=== PATIENT | female | born 1965 | race Caucasian/White ===

== ENCOUNTER → 2020-09-03 09:46 | Outpatient (CLI) | payer OTHER, SELFPAY ==
--- NOTE | ~2020-09-03 | MR_ITS ---
EXAMINATION: MR knee RT wo con DATE: 09/03/2020 10:30 INDICATION: Right knee pain. TECHNIQUE: Magnetic resonance imaging (MRI) of the right knee was performed without intravenous contr ast. Sequences included axial PD-weighted FS FSE, coronal PD-weighted FSE and PD-weighted FS FSE, sag ittal PD-weighted FSE, and sagittal T2-weighted FS FSE. COMPARISON: None. FINDINGS: Medial compartment: Medial meniscus is normal. Medial compartment cartilage is normal. Lateral compartment: Lateral meniscus is normal. Lateral compartment cartilage is normal. Patellofemoral compartment: Patellar cartilage is normal. Trochlear cartilage is normal. Ligaments and tendons: Anterior cruciate ligament demonstrates thickening and increased signal intensity, consistent with pa rtial tear. Posterior cruciate ligament is normal. There is a complete tear of proximal medial collat eral ligament. There are changes of prior sprain of fibular collateral ligament characterized increas ed signal intensity. There is mild patellar tendinopathy. Fluid: There is a large knee joint effusion. Osseous/other: There is bone marrow edema of lateral tibial condyle posteriorly, consistent with contusion. IMPRESSION: 1. Complete tear of medial collateral ligament proximally. 2. Partial tear of anterior cruciate ligament. 3. Large knee joint effusion. Reviewed, dictated and finalized at location A. R D MANAGER
== END ==
PROVIDERS: PCP Family Medicine
DX: M25.461 Effusion, right knee (principal); S83.411A Sprain of medial collateral ligament of right knee, initial encounter; S83.511A Sprain of anterior cruciate ligament of right knee, initial encounter; X58.XXXA Exposure to other specified factors, initial encounter
CPT/HCPCS: 73721

== ENCOUNTER 2025-02-11 14:10 | Outpatient (CLI) | payer OTHER, SELFPAY ==
--- OUTSIDE RECORDS SUMMARY | 2025-02-11 14:16 | XMS_ITS | Encounter Summary ---
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 Historical Provider Final Res ult * SCAN - LABS (05/14/2016 12:00 AM LABORER [employer]) Narrative 05/14/2016 12:00 AM LAB[employer]ER [employer] Ordered by an unspecified provider. Historical Provider MD Final Res ult * SCAN - LABS (05/11/2016 12:00 AM CDT) Narrative 05/11/2016 12:00 AM CDT Ordered by an unspecified provider. us Historical Provider Final Res ult * SCAN - LABS (05/11/2016 12:00 AM CDT) Narrative 05/11/2016 12:00 AM CDT Ordered by an unspecified provider. Historical Provider Final Res ult documented in this encounter Visit Diagnoses Not on filedocumented in this encounter Care Teams Overedge Machine Operator Relationship Specialty Start Date End Date Ricci Christianson DO PCP - General 01/30/19 documented as of this encounter
--- OUTSIDE RECORDS SUMMARY | 2025-02-11 14:16 | XMS_ITS | Encounter Summary ---
Author Organization [facility] TABATHA Capellan [facility] Address [address] [place] [address] Care Team Providers Care Customer Service Representative Teller Name Role Phone Unavailable Primary Care Provider Unavailabl e Reason for Referral * Laboratory Services (Routine) - Open Specialty Diagnoses / Procedures Referred By Contac t Referred To Contact Diagnoses Secondary thrombocytosis Procedures JAK2 MUTATION Joao Case MD [address] [place] [phone] Phone: tel: fax: Referral ID Status Reason Start Date Expiration Date Visits Re quested Visits Authorized [id number] Open 02/11/2025 03/14/2026 1 1 Encounter Details Date Type Department Care Team (Late st Contact Info) Description 02/11/2025 1:30 PM CDT Office Visit [facility] Oncology and Hematology - [place] [address] [place] [address] [facility] [address] [place] [address] Joao Case MD [facility] [address] [place] [phone] Secondary thrombocytosis (Primary Dx); Chronic anemia Social History Tobacco Use Types Packs/Day Years Used Date Smoking Tobacco: Every Day Cigarettes 0.5 20 Started: 02/11/2005 Smokeless Tobacco: Never Tobacco Cessation:Ready to Q uit: Not Asked; Counseling Given: Not Answered Alcohol Use Standard Drinks/Week Comments Never 0 (1 standard drink = 0.6 oz pur e alcohol) Comments Unknown Sex and Gender Information Value Date Recorded Sex Assigned at Not on file Legal Sex Female 10:17 PM CDT Gender Identity Not on file Sexual Orientation Not on file documented as of this encounter Last Filed Vital Signs Vital Sign Reading Time Taken Comments Blood Pressure 122/76 02/11/2025 1:26 PM CDT Pulse 78 02/11/2025 1:26 PM CDT Temperature 37.4 C (99.3 F) 02/11/2025 1:26 PM CDT Respiratory Rate 16 02/11/2025 1:26 PM CDT Oxygen Saturation 97% 02/11/2025 1:26 PM CDT Inhaled Oxygen Concentration - - Weight 65.4 kg (144 lb 3.2 oz) 02/11/2025 1:26 P M CDT Height 160 cm (5' 3) 02/11/2025 1:26 PM CDT Body Mass Index 25.54 02/11/2025 1:26 PM CDT documented in this encounter Plan of Treatment Upcoming Encounters Date Type Department Care Team (Late st Contact Info) Description 02/25/2025 4:30 PM CDT Telephone Check Up [facility] Oncology and Hematology - [place] [address] [facility] [address] [place] [address] Joao Case MD [address] [facility] [address] [place] [address] Scheduled Orders Name Type Priority Associated Diagnoses Orde r Schedule CBC WITH DIFFERENTIAL Lab Stat Secondary thrombocytosis Expected: 02/11/2025, Expires: 02/11/2026 CBC WITHOUT DIFFERENTIAL Lab Stat Secondary thrombocytosis Expected: 02/11/2025, Expires: 02/11/2026 FERRITIN Lab Routine Chronic anemia Expected: 02/11/2025, Expires: 02/11/2026 IRON, TIBC, AND PERCENT SATURATION Lab Routine Chronic anemia Expected: 02/11/2025, Expires: 02/11/2026 C-REACTIVE PROTEIN Lab Routine Secondary thrombocytosis Expected: 02/11/2025, Expires: 02/11/2026 JAK2 MUTATION Lab Routine Secondary thrombocytosis Expected: 02/11/2025, Expires: 02/11/2026 documented as of this encounter Visit Diagnoses Diagnosis Secondary thrombocytosis- Primary Essential thrombocythemia Chronic anemia Anemia, unspecified documented in this encounter
--- OUTSIDE RECORDS SUMMARY | 2025-02-11 14:16 | XMS_ITS | Clinical Summary ---
Author Organization [facility] Sujey gutierres Last Address [address] [place] [address] Care Team Providers Care Long Distance Billing Operator Name Role Phone Unavailable Primary Care Provider Unavailabl e Allergies Active Allergy Reactions Criticality Noted Date Comments Iodinated Contrast Media Unknown 02/11/2025 Medications rosuvastatin (CRESTOR) 10 mg tablet Take 1 Tablet by mouth daily. 12/04/2024 Active aspirin (ECOTRIN EC) 81 mg Tablet, Delayed Release (E.C.) Take 81 mg by mouth daily. Active Active Problems No known active problems Encounters Date Type Department Care Team Description 02/11/2025 1:30 PM CDT Office Visit [facility] Oncology and Hematology - [place] [address] [facility] [address] [place] [address] Joao Case MD Secondary thrombocytosis (Primary Dx); Chronic anemia from Last 3 Months Family History Medical History Relation Name Comments No Known Problems Father Diabetes Mother No Known Problems Sister 1 Diabetes Sister 2 No Known Problems Sister 3 Relation Name Status Comments Child 1 Alive Child 2 Alive Child 3 Alive Father Mother Alive Sister 1 Alive Sister 2 Alive Sister 3 Alive Social History Tobacco Use Types Packs/Day Years [...] on file Sexual Orientation Not on file Last Filed Vital Signs Vital Sign Reading [...] Mass Index 25.54 02/11/2025 1:26 PM CDT Plan of Treatment Upcoming Encounters Date Type Department Care Team (Late st Contact Info) Description 02/25/2025 4:30 PM CDT Telephone Check Up [facility] Oncology and Hematology [facility] [address] [facility] [address] [place] [address] Joao Case MD [address] [facility] [address] [place] [address] Health Maintenance Due Date Last Done Comments DTAP/TDAP/TD VACCINES (1 - Tdap) 1986 HEPATITIS B VACCINES (1 of 3 - 19+ 3-dose series) 12/08 HPV/Cotest (21-29) 01/05/1988 CERVICAL CANCER SCREENING 1997 HPV/Cotest (30-65) 1997 PAP SMEAR 1997 BREAST CANCER SCREENING 2007 COLORECTAL SCREENING 01/05/2012 Colorectal Cancer Screening 01/05/2012 FIT-DNA Q 3 years 01/05/2012 FIT/FOBT Q 1 year 01/05/2012 Flex Sig/CT Colonography Q 5 years 01/05/2012 ZOSTER VACCINE (1 of 2) 2017 Preventative Visit- Commercial 07/08/2024 INFLUENZA VACCINE (#1) 2025 Insurance [employer]ET[employer] CHOICE POS II
--- OUTSIDE RECORDS SUMMARY | 2025-02-11 14:16 | XMS_ITS | Encounter Summary ---
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 Historical Provider [facility] SANDEEP MAJOR Final Result documented in this encounter Visit Diagnoses Not on filedocumented in this encounter Care Teams Mathematician Relationship Specialty Start Date End Date Ricci Christianson DO PCP - General 01/30/19 documented as of this encounter
--- OUTSIDE RECORDS SUMMARY | 2025-02-11 14:16 | XMS_ITS | Clinical Summary ---
Author Organization [facility] Address [address] [place] [address] Care Team Providers Care Distance Learning Coordinator Name Role Phone None, Provider MD Primary Care Provider Unavaila ble Social History Tobacco Use Types Packs/Day Years Used Date Smoking Tobacco: Never Assessed Comments Unknown Sex and Gender Information Value Date Recorded Sex Assigned at Not on file Legal Sex Female 6:21 PM CDT Gender Identity Not on file Sexual Orientation Not on file Plan of Treatment Health Maintenance Due Date Last Done Comments Cervical Cancer Screening Pa p Smear (Age 30 to 64) Every 3 Years 1967 Colorectal Cancer Screening Colonoscopy (10 Years) 1967 Annual Physical 1970 Hepatitis C 1985 DTaP, Tdap and Td Vaccines ( 1 - Tdap) 1986 Hepatitis B Vaccines (1 of 3 - 19+ 3-dose series) 1986 Cervical Cancer Screening Pa p with HPV Testing (Age 30 to 64) Every 5 Years 1997 Cervical Cancer Screening with HPV 1997 Mammogram Screening 2007 Pneumococcal Vaccine: 50+ Ye ars (1 of 1 - PCV) 2017 Zoster Vaccines (1 of 2) 2017 COVID-19 Vaccine (2023-2 5 season) 2024 Meningococcal B Vaccine Aged Out No l onger eligible based on patient's age to complete this topic Meningococcal Vaccine Aged Out No khari candelario eligible based on patient's age to complete this topic RSV Immunizations Under 20 Months Aged Out No longer eligible based on patient's age to complete this topic Insurance [employer]ET[employer] [place] [id number] Care Teams Distance Learning Coordinator Relationship Specialty Start Date End Date None, Provider, MD PCP - General UNKNOWN PHYSICIAN SPECIALTY 03/05/23
--- OUTSIDE RECORDS SUMMARY | 2025-02-11 14:16 | XMS_ITS | Clinical Summary ---
Author Organization [facility] Address [address] [place] [address] Care Team Providers Care Pricer Bagger Name Role Phone HalawaRicci moise Primary Care Provider + Allergies Active Allergy Reactions Criticality Noted Date Comments Iodinated Contrast Media Unknown 01/28/2019 Medications rosuvastatin (CRESTOR) 10 mg tablet Take 1 tablet (10 mg total) by mouth daily 30 tablet 11 02/19/2022 Active Active Problems Problem Noted Date Diagnosed Date Annual physical exam 03/26/2023 Assessment & Plan (03/26/2023 4:38 PM CDT): Cxr Lab Elevated antinuclear antibody (JOHNNY) level 2019 Assessment & Plan (09/29/2019 7:26 AM CDT): See Soap Worker Paresthesias 04/16/2018 Neck pain 10/16/2017 Resolved Problems Problem Noted Date Diagnosed Date Resolved Date Bruising, spontaneous 08/27/20192022 Assessment & Plan (09/29/2019 7:26 AM CDT): Resolved Encounters Date Type Department Care Team Description 11/13/2024 11:13 AM CDT - 11/13/2024 11:59 PM CDT Hospital Encounter [facility] [address] [facility] [address] [place] [address] Encounter for screening mammogram for malignant neoplasm of breast Discharge Disposition: Discharge to home or self care from Last 3 Months Immunizations Immunization Administration Dates Next Due Influenza, Trivalent, IM (MDV) 06/02/2012 Influenza, Trivalent, Preser vative Free, Intramuscular 05/26/2017 Influenza, Unspecified 06/12/2022(Deferr ed: Patient Refused),04/26/2022(Deferred: Patient Refused),04/07/2021(Deferred: Patient Refused),04/07/2021(Deferred: Patient Refused),04/07/2019(Deferred: Patient Refused) Surgical History Surgery Date Site/Laterality Comments HYSTERECTOMY 07/08/2008 - 07/07/2009 SPINE SURGERY 07/08/2009 - 07/07/2010 C5, 6, 7 KNEE LIGAMENT RECONSTRUCTION 07/08/2020 - 07/07/2021 Rig ht AUGMENTATION MAMMAPLASTY 07/08/2005 - 07/07/2006 Bilater al Family History Medical History Relation Name Comments Brain Aneurysm Father No Known Problems Maternal Grandfather No Known Problems Maternal Grandmother No Known Problems Mother No Known Problems Paternal Grandfather No Known Problems Paternal Grandmother No Known Problems Sister 1 No Known Problems Sister 2 No Known Problems Sister 3 Relation Name Status Comments Father Maternal Grandfather Maternal Grandmother Mother Alive Paternal Grandfather Paternal Grandmother Sister 1 Alive Sister 2 Alive Sister 3 Alive Social History Tobacco Use Types Packs/Day Years Used Date Smoking Tobacco: Every Day Cigarettes 0.5 14 Smokeless Tobacco: Never Tobacco Cessation:Ready to Q uit: Not Asked; Counseling Given: Not Answered Alcohol Use Standard Drinks/Week Comments Not Currently 0 (1 standard drink = 0.6 oz pur e alcohol) AUDIT-C Answer Date Recorded Q1: How often do you have a drink containing alc ohol? 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 Gender Identity Not on file Sexual Orientation Not on file Obstetrics History Para Term AB IAB SAB Ectopic Multiple Livin g Live Births 3 3 3 Date Outcome GA Total Labor Labor/2nd/3rd Weight Sex Type Anes PTL Zeenat A1 A5 Name Clin Term Term Term Last Filed Vital Signs Vital Sign Reading Time Taken Comments Blood Pressure 136/84 03/26/2023 4:15 PM CDT Pulse 84 03/26/2023 4:15 PM CDT Temperature 36.2 C (97.2 F) 03/26/2023 4:15 PM CDT Respiratory Rate 16 03/26/2023 4:15 PM CDT Oxygen Saturation 99% 03/26/2023 4:15 PM CDT Inhaled Oxygen Concentration - - Weight 64.4 kg (142 lb) 11/13/2024 11:17 AM CDT Height 160 cm (5' 3) 11/13/2024 11:17 AM CDT Body Mass Index 25.15 11/13/2024 11:17 AM CDT Plan of Treatment Health Maintenance Due Date Last Done Comments Hepatitis C Screening 1967 DTaP/Tdap/Td Vaccine (1 - Tdap) 1978 Hepatitis B Screening 1985 Pneumococcal vaccine <65 (1 of 2 - PCV) 1986 Zoster Vaccine (1 of 2) 2017 Depression Screening 02/15/2023 02/15/2022 Regular Well Visit/Exam 18-64 03/26/2024 03/26/2023, 02/15/2022 Colon Cancer Screening-Colonoscopy 08/30/20242014 Influenza Vaccine (#1) 2025 05/26/2017, 2011 Breast Cancer Screening-Mammogram 11/13/2025 11/13/2024, 05/04/2022, 02/06/2017 Colon Cancer Screening-CT Colonography Discontinued 08/30/2014 Colon Cancer Screening-DNA Stool Discontinued 08/30/19 Colon Cancer Screening-FIT Discontinued 08/30/2014 Colon Cancer Screening-Sigmoidoscopy Discontinued 08/09 Procedures Procedure Name Priority Date/Time Associated Diagnosis Comments SCREENING MAMMOGRAM BILATERAL W SUNG W IMPLANTS Schedule Routine, Read Routine (OP Routine) 11/13/2024 11:32 AM CDT Encounter for screening mammogram for malignant neoplasm of breast COLONOSCOPY Routine 08/30/2014 from Last 3 Months or Most Recently Relevant to Health Maintenance Results * Screening Mammogram Bilateral W Sung W Implants (11/13/2024 11:32 AM CDT) Anatomical Region Laterality Modality Breast Bilateral Mammography Impressions 11/13/2024 11:40 AM CDT Bilateral No evidence of malignancy in either breast. OVERALL BI-RADS FINAL ASSESSMENT: 2 - Benign RECOMMENDATION: Recommend bilateral annual screening mammography. Narrative 11/13/2024 11:40 AM CDT EXAMINATION: Screening Mammogram Bilateral W Sung W Implants: 11/13/2024 COMPARISON: Relevant prior studies available at the time of interpretation were reviewed. TECHNIQUE: Mammography was performed with 2D and digital breast tomosynthesis (DBT) images. CAD was utilized. BREAST PARENCHYMAL COMPOSITION: There are scattered areas of fibroglandular density. FINDINGS: Bilateral breast subpectoral saline implants are stable in appearance and intact. The presence of implants limits the sensitivity of mammography. There is no suspicious mass, calcification, or architectural distortion in either breast. Ricci Christianson DO IMG MAMMO PROCEDURES Fin al Result * Colonoscopy (08/30/2014) Anatomical Region Laterality Modality Other Impressions 08/30/2014 In procedures tab, 10 year follow up Historical Provider MD ENDOSCOPY PROCEDURES Tiarra l Result from Last 3 Months or Most Recently Relevant to Health Maintenance Insurance O AETNA [facility] HMO Care Teams Pricer Bagger Relationship Specialty Start Date End Date Ricci Christianson DO PCP - General 01/30/19
--- OUTSIDE RECORDS SUMMARY | 2025-02-11 14:16 | XMS_ITS | Encounter Summary ---
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 Historical Provider Final Res ult * SCAN - LABS (04/16/2018 12:00 AM CDT) Narrative 04/16/2018 12:00 AM CDT Ordered by an unspecified provider. Historical Provider Final Res ult documented in this encounter Visit Diagnoses Not on filedocumented in this encounter Care Teams Assistant Hall Director Relationship Specialty Start Date End Date Ricci Christianson DO PCP - General 01/30/19 documented as of this encounter
--- OUTSIDE RECORDS SUMMARY | 2025-02-11 14:16 | XMS_ITS | Encounter Summary ---
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 Historical Provider Final Res ult documented in this encounter Visit Diagnoses Not on filedocumented in this encounter Care Teams Meat Curer Relationship Specialty Start Date End Date Ricci Christianson DO PCP - General 01/30/19 documented as of this encounter
[2025-02-11 14:29] LABS: Hematocrit 41.3 % (37.0-47.0); Hemoglobin 13.9 g/dL (12.0-15.0); Immature Granulocyte Percent A 0.3 % (0-0.5); Lymphocytes Absolute Auto 3.79 K/mm3 (0.9-3.2); Mean Corpuscular HGB Conc 33.7 g/dl (32-36); Mean Corpuscular Hemoglobin 32.3 pg (26-34); Mean Corpuscular Volume 95.8 fl (80-100); Nucleated Red Blood Cells Absolute Auto 0.000 K/mm3 (0.0-0.012); Nucleated Red Blood Cells Perc 0.0 % (0.0-0.2); Platelet Count Result 421 k/mm3 (150-375); Red Blood Count 4.31 M/mm3 (4.2-5.4); White Blood Count 10.5 K/mm3 (4.5-10.0)
[2025-02-11 17:16] LABS: CRP < 0.5 mg/dL (<1.0)
[2025-02-11 17:27] LABS: Iron 76 ug/dL (37-170)
[2025-02-11 17:36] LABS: Percent Iron Saturation 23 % (20-50)
[2025-02-11 18:11] LABS: Ferritin 42.60 ng/mL (11.1-264)
== END 2025-02-11 14:11 | disposition home or self-care (01) ==
LOC: ANHLAB 14:11
PROVIDERS: PCP Family Medicine; Visit Provider Internal Medicine Hematology & Oncology
DX: D75.838 Other thrombocytosis (principal); D64.9 Anemia, unspecified
CPT/HCPCS: 36415; 82728; 83540; 83550; 85025; 86140

== ENCOUNTER 2025-07-05 11:15 | Outpatient (CLI) | payer OTHER, SELFPAY ==
[2025-07-05 11:42] LABS: Hematocrit 41.0 % (37.0-47.0); Hemoglobin 13.8 g/dL (12.0-15.0); Immature Granulocyte Percent A 0.3 % (0-0.5); Lymphocytes Absolute Auto 3.02 K/mm3 (0.9-3.2); Mean Corpuscular HGB Conc 33.7 g/dl (32-36); Mean Corpuscular Hemoglobin 32.7 pg (26-34); Mean Corpuscular Volume 97.2 fl (80-100); Nucleated Red Blood Cells Absolute Auto 0.000 K/mm3 (0.0-0.012); Nucleated Red Blood Cells Perc 0.0 % (0.0-0.2); Platelet Count Result 405 k/mm3 (150-375); Red Blood Count 4.22 M/mm3 (4.2-5.4); White Blood Count 9.0 K/mm3 (4.5-10.0)
--- OUTSIDE RECORDS SUMMARY | 2025-07-05 11:56 | XMS_ITS | Clinical Summary ---
Author Organization [facility] Sujey gutierres [facility] Address [address] [address] Care Team Providers Care Inspector Optical Instrument Name Role Phone Unavailable Primary Care Provider [...] Encounters Date Type Department Care Team Description 06/22/2025 External Device Data STL ABSTRACTION Provider, Abstract 06/15/2025 External Device Data STL ABSTRACTION Provider, Abstract 05/05/2025 External Device Data STL ABSTRACTION Provider, Abstract from Last 3 Months Family History Medical [...] Date Smoking Tobacco: Every Day Cigarettes 0.5 20.4 Started: 02/11/2005 Smokeless Tobacco: Never Tobacco Cessation:Ready [...] Care Team (Late st Contact Info) Description 07/13/2025 1:15 PM FASHION STYLIST Office Visit [facility] Oncology and Hematology - [place] [address] [facility] [address] [place] [address] Joao Case MD [address] [facility] [address] [place] [address] Health Maintenance Due Date Last Done Comments Pre-Diabetes and Diabetes Screening 1967 DTAP/TDAP/TD VACCINES (1 - Tdap) 1986 HEPATITIS B VACCINES (1 of 3 - 19+ 3-dose series) 1986 HPV/Cotest (21-29) 01/05/1988 CERVICAL CANCER SCREENING 1997 HPV/Cotest (30-65) 1997 PAP SMEAR 1997 FIT-DNA Q 3 years 01/05/2012 FIT/FOBT Q 1 year 01/05/2012 Flex Sig/CT Colonography Q 5 years 01/05/2012 ZOSTER VACCINE (1 of 2) 2017 COLORECTAL SCREENING 08/30/2024 08/30/2014 Colorectal Cancer Screening 08/30/2024 INFLUENZA VACCINE (#1) 2025 05/26/2017, 2011 BREAST CANCER SCREENING 11/13/2025 11/14/19, 11/13/2024, 05/04/2022, Additional history exists Insurance [employer] CHOICE POS II
--- OUTSIDE RECORDS SUMMARY | 2025-07-05 11:56 | XMS_ITS | Encounter Summary ---
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
--- OUTSIDE RECORDS SUMMARY | 2025-07-05 11:56 | XMS_ITS | Encounter Summary ---
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
--- OUTSIDE RECORDS SUMMARY | 2025-07-05 11:56 | XMS_ITS | Encounter Summary ---
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 Historical Provider Final Res ult * SCAN - LABS (05/14/2016 12:00 AM CHARGING PLUG PLACER) Narrative 05/14/2016 12:00 AM CHARGING PLUG PLACER Ordered by an unspecified provider. Historical Provider [...] on filedocumented in this encounter Care Teams Sports Specialist Relationship Specialty Start Date End Date Ricci Christianson DO PCP - General 01/30/19 documented as of this encounter
--- OUTSIDE RECORDS SUMMARY | 2025-07-05 11:56 | XMS_ITS | Encounter Summary ---
Author Organization 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 Historical Provider Final Res ult documented in this encounter Visit Diagnoses Not on filedocumented in this encounter Care Teams Front Desk Lead Relationship Specialty Start Date End Date Ricci Christianson DO PCP - General 01/30/19 documented as of this encounter
--- OUTSIDE RECORDS SUMMARY | 2025-07-05 11:57 | XMS_ITS | Clinical Summary ---
Author Organization [facility] Address [address] [place] [id number] Care Team Providers Care Dye Line Operator Name Role Phone None, Provider MD Primary [...] Every 5 Years 1997 Cervical Cancer Screening wi th HPV 1997 Mammogram Screening 2007 Pneumococcal Vaccine: 50+ Years (1 of 1 - PCV) 2017 Zoster Vaccines (1 of 2) 2017 COVID-19 Vaccine ( - 2024-2 6 season) 2025 Influenza Adult (#1) 2025 05/26/2017, 06/02/2012 Hepatitis A Vaccines Aged Out No long er eligible based on patient's age to complete this topic Meningococcal B Vaccine Aged Out No l onger eligible based on patient's age to complete this topic Meningococcal Vaccine Aged Out No khari candelario eligible based on patient's age to complete this topic RSV Immunizations Under 20 Months Aged Out No longer eligible b ased on patient's age to complete this topic Insurance [employer] Care Teams Dye Line Operator Relationship Specialty Start Date End Date None, Provider, PCP - General UNKNOWN PHYSICIAN SPECIALTY 03/05/23
--- OUTSIDE RECORDS SUMMARY | 2025-07-05 11:57 | XMS_ITS | Clinical Summary ---
Author Organization [facility] [place] Address [address] [place] [address] Care Team Providers Care Bootmaker Name Role Phone [place]ci moise Primary Care Provider + Allergies Active [...] & Plan (09/29/2019 7:26 AM CDT): See Doughnut Machine Operator Helper Paresthesias 04/16/2018 Neck pain 10/16/2017 Resolved Problems Problem Noted Date Diagnosed Date Resolved Date Bruising, spontaneous 08/27/20192022 Assessment & Plan (09/29/2019 7:26 AM CDT): Resolved Immunizations Immunization Administration Dates Next Due Influenza, [...] on file 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
[2025-07-05 14:23] LABS: Anion Gap 8 mmol/L (4-12); Blood Urea Nitrogen 12 mg/dL (7-17); Calcium 9.5 mg/dL (8.4-10.2); Carbon Dioxide 24 mmol/L (22-30); Chloride 104 mmol/L (98-107); Estimated Glomerular Filt Rate 60; Glucose 125 mg/dL (65-110); Potassium 4.2 mmol/L (3.4-5.0); Sodium 136 mmol/L (137-145)
== END 2025-07-05 11:16 | disposition home or self-care (01) ==
LOC: ANHLAB 11:17
PROVIDERS: PCP Family Medicine; Visit Provider Internal Medicine Hematology & Oncology
DX: D75.838 Other thrombocytosis (principal)
CPT/HCPCS: 36415; 80048; 85025